=== PATIENT | male | born 1965 | race African-American/Black ===

== ENCOUNTER 2017-01-05 11:50 | Emergency (ER) | payer MEDICARE, MEDICAID ==
[~2017-01-05] VITALS: Ht 182.9 cm; Wt 79.4 kg
[~2017-01-05 11:50] MED LIST: ANDROGEL2.5 GM TD; FLUCONAZOLE200 MG PO; INTELENCE200 MG PO; MEGACE40 MG PO; NORVIR100 MG PO; OXANDRIN10 MG PO; OXYCODONE HCL20 MG PO; PREZISTA600 MG PO; TRUVADA1 TAB PO
[2017-01-05] MEDS ORDERED: VALTREX500 MG ORAL (12:12)
[2017-01-05] MEDS ORDERED: PREDNISONE20 MG ORAL (12:12)
[2017-01-05] MEDS ORDERED: KENALOG 0.1% LO60 ML APPLIC (12:12)
--- NOTE | 2017-01-05 12:14 | Emergency Room Report ---
History of Present Illness General Chief Complaint: Skin Rash/Abscess Present Illness HPI 51-year-old male complains of rash on left side of his chest for 3 days. States that he has small blisters that originate from the left flank / back and radiate along the left axillary region to the left anterior chest. States that it's tender to touch and pain is minimal currently. Worse with palpation and no relieving factors. Patient believes he has shingles stating he had a similar outbreak 6 years ago. Denies any current n/v/f/c/d, abd pain, back pain, neck pain, photophobia, phonophobia, CP, SOB or headache. Allergies: Coded Allergies: PENICILLINS (Verified Allergy, Hives, 09/14/12) RASH SULFAMETHOXAZOLE (Verified Allergy, 09/14/12) HEADACHES, FEVER TRIMETHOPRIM (Verified Allergy, 09/14/12) HEADACHES, FEVER Patient History Past Medical History: see triage record Past Surgical History: none Pertinent Family History: none Reviewed Nursing Documentation: PMH: Agreed, PSxH: Agreed Nursing Documentation-PMH Hx Cardiac Problems: No - HIV Hx Cancer: No Hx Gastrointestinal Problems: No Hx Neurological Problems: No Review of Systems All Other Systems: negative except mentioned in HPI Physical Exam Vital Signs Date Time Temp Pulse Resp B/P Pulse Ox O2 Delivery O2 Flow Rate FiO2 01/05/17 11:54 97.9 90 20 160/74 100 Room Air Sp02 EP Interpretation: reviewed, normal General Appearance: no apparent distress, alert, GCS 15, non-toxic Head: normocephalic, atraumatic Eyes: bilateral eye normal inspection ENT: normal ENT inspection Neck: normal inspection Respiratory: chest non-tender, lungs clear, normal breath sounds, speaking full sentences Cardiovascular #1: regular rate, rhythm, no edema Musculoskeletal: gait/station normal Neurologic: alert, oriented x3, responsive, motor strength/tone normal, sensory intact, speech normal Psychiatric: judgement/insight normal, memory normal, mood/affect normal, no suicidal/homicidal ideation Skin: normal color, warm/dry, well hydrated, rash - Vessicles on erythematous base from left posterior trunk radiating in dermatomal pattern to left anterior chest. Medical Decision Making PA Attestation Dr. Larose is my supervising physician with whom patient management has been discussed with. Diagnostic Impression: Primary Impression: Herpes zoster Qualified Codes: B02.9 - Zoster without complications ER Course Pt. presents to the ED c/o rash Ddx considered but are not limited to dermatitis, insect sting, viral exanthem, herpez zoster, cellulitis, abscess Vital signs: are WNL, pt. is afebrile H&PE are most consistent with herpes zoster ORDERS: none required at this time, the diagnosis is clinical ED INTERVENTIONS: none required at this time. DISCHARGE: At this time pt. is stable for d/c to home. Will provide printed patient care instructions, and any necessary prescriptions. Care plan and follow up instructions have been discussed with the patient prior to discharge. Last Vital Signs Date Time Temp Pulse Resp B/P Pulse Ox O2 Delivery O2 Flow Rate FiO2 01/05/17 11:54 97.9 90 20 160/74 100 Room Air Status: unchanged Disposition: HOME, SELF-CARE Condition: Stable Scripts Prednisone* (PREDNISONE*) 20 Mg Tablet 40 MG ORAL DAILY for 5 Days, #10 TAB Prov: BIREN SHELL.A. 01/05/17 Triamcinolone Acet (Triamcinolone Acetonide) 60 Ml Lotion 1 APPLIC APPLIC BID for 14 Days, #60 GM Prov: BRIEN SHELL P.A. 01/05/17 Valacyclovir Hcl* (VALTREX*) 500 Mg Tablet 500 MG ORAL THREE TIMES A DAY for 7 Days, #21 TAB 0 Refills Prov: BRIEN SHELL P.A. 01/05/17 Patient Instructions: Shingles Additional Instructions: Take medication as directed. Advised patient to avoid contact of rash as rash is contagious and can spread to others. Advised patient to go to the ER if they experience severe symptoms like pain, widespread swelling, and large blisters, oozing, or crusting of the skin. Patient is to return sooner if their rash does not go away within 34 weeks, or if it gets worse. BRIEN SHELL January 05, 2017 12:14
[2017-01-05 12:24] VITALS: BP 156/73
[2017-01-05 12:29] VITALS: BP 156/73
== END 2017-01-05 12:30 | disposition home or self-care (01) ==
LOC: EMR 12:27
DX: B02.9 Zoster without complications (principal); Z88.0 Allergy status to penicillin; Z88.2 Allergy status to sulfonamides
CPT/HCPCS: 99284

== ENCOUNTER 2017-03-17 15:19 | Emergency (ER) | payer MEDICARE, MEDICAID ==
[~2017-03-17] VITALS: Ht 182.9 cm; Wt 79.4 kg
[~2017-03-17 15:19] MED LIST changes: +KENALOG 0.1% LO60 ML APPLIC; +PREDNISONE20 MG ORAL; +VALTREX500 MG ORAL
[2017-03-17 15:56] VITALS: BP 121/80
[2017-03-17] MEDS ORDERED: Methocarbamol 750mg tab ORAL ONE (16:00)
--- NOTE | 2017-03-17 16:40 | Diagnostic Imaging Report ---
Indication: Pain and tingling Technique: Spiral acquisitions obtained through the cervical spine. No IV contrast utilized. Multiplanar reconstructions were generated. Total dose length product 259 mGycm. CTDIvol(s) 12 mGy. Dose reduction achieved using automated exposure control Comparison: None Findings: No acute fractures. Bony alignment is normal. No dislocations. Vertebral body heights are preserved. The mandibular heads are anterior to the glenoid fossae bilaterally And C3-4, there is mild degenerative disc narrowing. There is moderate narrowing of bilateral neural foramina. There is mild broad-based posterior disc protrusion, which does not significantly compromise the spinal canal. At C4-5, there is broad-based posterior disc protrusion, which does not significantly compromise the spinal canal. The neural foramina are preserved. The disc space is preserved. At C6-7, there is broad-based central posterior disc protrusion, which does not significantly compromise the spinal canal. The neural foramina are preserved. The remaining disc levels, no significant disc bulge or protrusion, spinal stenosis, or neural foraminal narrowing. The included lung apices are clear. The included extraspinal soft tissues are unremarkable. The upper airway is unremarkable. Impression: No acute bony trauma Mild degenerative changes as detailed above The CT scanner at [facility] is accredited by the [employer] and the scans are performed using protocols designed to limit radiation exposure to as low as reasonably achievable to attain images of sufficient resolution adequate for diagnostic evaluation.
[2017-03-17] MEDS ORDERED: ROBAXIN-750750 MG PO (16:47)
[2017-03-17 17:31] VITALS: BP 121/80
--- NOTE | 2017-03-17 21:46 | Emergency Room Report ---
History of Present Illness General Chief Complaint: Pain Source: Patient Present Illness HPI The patient is a 51-year-old male presenting for neck and shoulder pain. Pain began one week prior for no known reason. She denies any injury to the area. Is described as an 8/10 dull ache which begins in the neck and radiates down to the shoulder. He also admits to occasional numbness and tingling of the left arm. The patient states that he takes OxyContin at home for pain which does help. Pain worse with neck movement. He denies any other symptoms including chest pain, shortness of breath, fever, chills headache Allergies: Coded Allergies: PENICILLINS (Verified Allergy, Hives, 09/14/12) RASH SULFAMETHOXAZOLE (Verified Allergy, 09/14/12) HEADACHES, FEVER TRIMETHOPRIM (Verified Allergy, 09/14/12) HEADACHES, FEVER Patient History Past Medical History: see triage record Pertinent Family History: none Reviewed Nursing Documentation: PMH: Agreed, PSxH: Agreed Nursing Documentation-PMH Past Medical History: No History, Except For Hx Cardiac Problems: No - HIV Hx Cancer: No Hx Gastrointestinal Problems: No Hx Neurological Problems: No - Neuropathy Review of Systems All Other Systems: negative except mentioned in HPI Physical Exam Vital Signs Date Time Temp Pulse Resp B/P Pulse Ox O2 Delivery O2 Flow Rate FiO2 03/17/17 15:26 97.3 80 16 121/80 97 Room Air Sp02 EP Interpretation: reviewed, normal General Appearance: no apparent distress, alert, GCS 15, non-toxic Eyes: bilateral eye PERRL, bilateral eye normal inspection ENT: hearing grossly normal, normal pharynx, no angioedema, normal voice Neck: tender lateral - L C spine, tender - Midline TTP over the C spine Respiratory: chest non-tender, lungs clear, normal breath sounds, speaking full sentences Cardiovascular #1: regular rate, rhythm, no edema Musculoskeletal: back normal, gait/station normal, normal range of motion Neurologic: alert, oriented x3, responsive, motor strength/tone normal, sensory intact, speech normal Psychiatric: judgement/insight normal, memory normal, mood/affect normal, no suicidal/homicidal ideation Skin: normal color, no rash, warm/dry, well hydrated Medical Decision Making PA Attestation Dr. Mendez is my supervising physician. Patient management was discussed with my supervising physician Diagnostic Impression: Primary Impression: Muscle strain ER Course The patient is a 51-year-old male presenting for neck and shoulder pain. Differential diagnoses considered but not limited to: Cervical strain, disc herniation, fracture, muscle spasm, fracture, among others PE: No apparent distress There is tense to palpation over the mid cervical spine as well as left paraspinal muscles. Full active range of motion of the neck and left shoulder Otherwise exam is unremarkable CT scan of the C-spine is unremarkable Patient is discharged home with a prescription for muscle relaxer. ER precautions given CT/MRI/US Diagnostic Results CT/MRI/US Diagnostic Results : Imaging Test Ordered: CT C spine Impression No acute findings Last Vital Signs Date Time Temp Pulse Resp B/P Pulse Ox O2 Delivery O2 Flow Rate FiO2 03/17/17 17:31 97.3 80 16 121/80 97 Room Air Status: improved Disposition: HOME, SELF-CARE Condition: Improved Scripts Methocarbamol* (ROBAXIN-750*) 750 Mg Tablet 750 MG PO TID, #21 TAB 0 Refills Prov: HARPREET COLEMAN 03/17/17 Referrals: NON PHYSICIAN (PCP) Patient Instructions: Muscle Strain Additional Instructions: I discussed my findings with the patient. All questions and concerns have been answered. Treatment and medication compliance have been addressed. I advised the patient that they need to follow up with PMD in 3-5 days. Return to ED if pain remains or worsens, numbness or tingling occurs, new rash is noticed, fever is noticed, or if needed for any reason. Patient verbalized understanding of discharge instructions. HARPREET COLEMAN Mar 17, 2017 21:45
== END 2017-03-17 18:00 | disposition home or self-care (01) ==
LOC: EMR 17:57
DX: M54.2 Cervicalgia (principal); M25.519 Pain in unspecified shoulder; G62.9 Polyneuropathy, unspecified; Z88.0 Allergy status to penicillin; Z88.2 Allergy status to sulfonamides; Z88.1 Allergy status to other antibiotic agents; T14.8 Other injury of unspecified body region; X58.XXXA Exposure to other specified factors, initial encounter; Y92.9 Unspecified place or not applicable
CPT/HCPCS: 72125; 99284